=== PATIENT | female | born 1965 | race Asian ===

== ENCOUNTER 2020-04-28 06:12 | Day surgery (SDC) | payer BC ==
[2020-04-22 17:07] LABS: BASOPHIL % 0.6 % (0-2); PLATELET COUNT 357 x10^3mcL (130-400); RED CELL DISTRIBUTION WIDTH 12.7 % (11.5-14.5)
[2020-04-22 17:14] LABS: CALCIUM 9.5 mg/dL (8.5-10.1); CARBON DIOXIDE 28.7 mmol/L (21-32); CHLORIDE SERUM 103 mmol/L (98-107); CREATININE SERUM 0.7 mg/dL (0.6-1.0); GFR1 > 60 mL/min; GLUCOSE SERUM 107 mg/dL (74-106); POTASSIUM SERUM 3.6 mmol/L (3.5-5.1); SODIUM SERUM 139 mmol/L (136-145)
[2020-04-23 15:12] LABS: UA SPECIFIC GRAVITY 1.025 (1.005-1.035); microscopic required? YES; urine erythrocyte 2+ (NEGATIVE)
[~2020-04-28] VITALS: Ht 149.9 cm; Wt 59.4 kg
[2020-04-28 06:37] VITALS: BP 131/86
[2020-04-28 11:46] VITALS: BP 162/70
== END 2020-04-28 11:30 | disposition home or self-care (01) ==
LOC: DS 06:12 → OR 07:30 → DS 11:30
PROVIDERS: ATTEND Urology
DX: N20.0 Calculus of kidney (principal); I10 Essential (primary) hypertension; Z90.710 Acquired absence of both cervix and uterus; Z79.899 Other long term (current) drug therapy
CPT/HCPCS: J0690; J3010; Q9967; U0003-CS